=== PATIENT | female | born 1965 | race African-American/Black ===

== ENCOUNTER 2016-07-22 08:09 | Day surgery (SDC) | payer OTHER ==
[~2016-07-22] VITALS: Ht 157.5 cm; Wt 43.3 kg
[2016-07-22] MEDS ORDERED: OMEPRAZOLE (08:46)
[2016-07-22 08:47] VITALS: Ht 157.5 cm; Wt 43.3 kg
[2016-07-22 09:11] VITALS: BP 117/70; PULSE 74; RESP 18
[2016-07-22] MEDS ORDERED: FENTAnyl 50 MCG/ML VIAL ONE (09:40)
[2016-07-22] MEDS ORDERED: MIDAZOLAM 1 MG/ML 2 ML INJ ONE (09:40)
[2016-07-22 10:05] VITALS: BP 116/53; PULSE 67; RESP 18
--- NOTE | 2016-07-23 01:26 | GILP ---
DATE OF PROCEDURE: NAME OF PROCEDURE: Colonoscopy. SURGEON: Brandon Garcia MD PREOPERATIVE DIAGNOSIS: Screening colonoscopy. POSTOPERATIVE DIAGNOSES: 1. Colonoscopy all the way to the cecum. 2. Small internal hemorrhoids. 3. No colon neoplasm was identified. INDICATION FOR THE PROCEDURE: Ms. Esthela Alexander is a 50-year-old female patient who was scheduled for pr reening colonoscopy. The procedure and possible complications were well explained to the patient and the family. Consent was obtained. DESCRIPTION OF PROCEDURE: Under the influence of fentanyl and Versed, the colonoscope was carefully introduced in the rectum. Under direct vision, it was advanced all the way to the cecum. FINDINGS: The patient had small internal hemorrhoids. No colon neoplasm was identified. She tolerated the procedure very well and there was no complication from the procedure. At the end of the procedure, she was awake with stable vital signs and she was discharged home to the care of h er family. IMPRESSION: 1. Colonoscopy all the way to the cecum. 2. Small internal hemorrhoids. 3. No colon neoplasm was identified. PLAN: Screening colonoscopy in 10 years. Dictated By: BRANDON MAYES/NTS Conf#: [id number] DID#: [id number] CC: BRANDON GARCIA MD;*EndCC*
--- NOTE | 2016-07-23 08:55 | CONS ---
DATE OF ADMISSION: 07/22/2016 DATE OF CONSULTATION: 07/01/2016 TYPE OF CONSULTATION: Preoperative gastroenterology. Dear Dr. Oneal: I thank you very much for this kind referral. HISTORY OF PRESENT ILLNESS: Ms. Esthela Alexander is a 50-year-old female patient who has been referred to em[facility] null for further evaluation of abdominal pain. The patient states she has got epigastric pain as well as pain in the right lower quadrant. The patient has been taking omeprazole without complete relief . There is no definite past history of peptic ulcer disease. She is not taking any nonsteroidal an ti-inflammatory agents. Her appetite has been good, and she is not losing any weight. There is no history of gallstones. She does not have any fever, chills or jaundice. There is no history of lazaro er disease. The patient had abdominal ultrasound and it was normal. Patient also complains of righ t lower quadrant abdominal pain and change in the bowel habit. There is no past history of colon ne oplasm. The patient never had screening colonoscopy. She is not a hypertensive or diabetic. She d oes not have any heart disease or lung problems. There is no history of kidney disease. SOCIAL HISTORY: She is a nonsmoker. She does not abuse alcohol. FAMILY HISTORY: Negative for gastrointestinal tract neoplasm. ALLERGIES: THERE IS NO HISTORY OF SIGNIFICANT DRUG ALLERGY. MEDICATIONS: Omeprazole. PHYSICAL EXAMINATION GENERAL: She is 5 feet 2 inches tall and she weighs 98 pounds. HEART: Examination of the heart reveals normal first and second heart sounds. LUNGS: Clear. ABDOMEN: Soft without any distention. Liver and spleen are not palpable. There are no masses. Th ere is no focal tenderness. Normal bowel sounds are heard. CENTRAL NERVOUS SYSTEM: Does not reveal any focal neurological deficit. IMPRESSION: 1. Upper abdominal pain, not responding to therapy with omeprazole. 2. The patient had abdominal ultrasound and it was normal. 3. Right lower quadrant pain. 4. Change in the bowel habit. 5. The patient never had screening colonoscopy. PLAN: 1. Endoscopic examination to rule out peptic ulcer disease. 2. Screening colonoscopy at a later date. The procedures and possible complications are well explained to the patient. She understands and co nsents to the procedures. I thank you once again. With warmest personal regards, BRANDON GARCIA MD Dictated By: BRANDON MAYES/ARIAN Conf#: [id number] DID#: [id number]
== END 2016-07-22 10:30 | disposition home or self-care (01) ==
LOC: GIL 08:09
PROVIDERS: ATTEND Internal Medicine Gastroenterology
DX: Z12.11 Encounter for screening for malignant neoplasm of colon (principal); K64.8 Other hemorrhoids
CPT/HCPCS: 45378; J2250; J3010; Z7610

== ENCOUNTER 2016-07-31 05:38 | Day surgery (SDC) | payer OTHER ==
[~2016-07-31] VITALS: Ht 157.5 cm; Wt 44.5 kg
[~2016-07-31 05:38] MED LIST: OMEPRAZOLE
[2016-07-31 06:24] VITALS: Ht 157.5 cm; Wt 44.5 kg
[2016-07-31 06:51] VITALS: BP 98/55; PULSE 76; RESP 17
[2016-07-31] MEDS ORDERED: MIDAZOLAM 1 MG/ML 2 ML INJ ONE (07:33)
[2016-07-31] MEDS ORDERED: FENTAnyl 50 MCG/ML VIAL ONE (07:33)
--- NOTE | 2016-07-31 10:21 | GILP ---
DATE OF PROCEDURE: NAME OF PROCEDURES: Esophagogastroduodenoscopy and biopsy. SURGEON: Brandon Thomas MD PREOPERATIVE DIAGNOSIS: Abdominal pain. POSTOPERATIVE DIAGNOSES: 1. Gastritis. 2. Gastric mucosal biopsies were taken for Helicobacter pylori test. INDICATION FOR THE PROCEDURE: Ms. Esthela Alexander is a 50-year-old female patient who had upper abdominal pain, not responding to therapy. The patient was scheduled for endoscopic examination for further e valuation. The procedure and possible complications were well explained to the patient and the family and conse nt was obtained. DESCRIPTION OF PROCEDURE: Under the influence of fentanyl and Versed, the gastroscope was carefully introduced into the esophagus and under direct vision, it was advanced to the stomach and through t he pylorus into the duodenal bulb and descending duodenum. FINDINGS: ESOPHAGUS: The mucosa was normal. STOMACH: The patient had gastritis. Gastric mucosal biopsies were taken for H. pylori test. DUODENUM: Normal. She tolerated the procedure very well and there was no complication from the procedure. At the end of the procedure, she was awake with stable vital signs and she was discharged home to the care of [facility] family. IMPRESSION: 1. Gastritis. 2. Gastric mucosal biopsies were taken for Helicobacter pylori test. PLAN: 1. Continue omeprazole. 2. Await H. pylori test report. 3. Bentyl 10 mg p.o. t.i.d. p.r.n. for pain. Dictated By: BRANDON MAYES/ARIAN Conf#: [id number] DID#: [id number]
== END 2016-07-31 08:32 | disposition home or self-care (01) ==
LOC: GIL 05:38 → EDUNIT# 07:00 → GIL 08:32
PROVIDERS: ATTEND Internal Medicine Gastroenterology
DX: K29.70 Gastritis, unspecified, without bleeding (principal)
CPT/HCPCS: 43239; 87081; J2250; J3010; Z7610